=== PATIENT | male | born 1950 | race Caucasian/White ===

== ENCOUNTER 2016-07-31 18:51 | Emergency (ER) | payer OTHER ==
[~2016-07-31] VITALS: Ht 182.9 cm; Wt 107.5 kg
[2016-07-31 18:58] VITALS: Ht 182.9 cm; Wt 107.5 kg
[2016-07-31] MEDS ORDERED: GLC/500 PO (20:00)
[2016-07-31] MEDS ORDERED: INSDGIPEN SC (20:00)
[2016-07-31] MEDS ORDERED: LISI-461 PO (20:00)
[2016-07-31] MEDS ORDERED: BYTI10 SC (20:00)
[2016-07-31] MEDS ORDERED: OPTIRAY 320 IV PRN (20:00)
[2016-07-31 20:09] LABS: BASO % 0.4 %; BASO ABS # 0.03 K/uL (0-0.2); COMPLETE YES; EOS % 1.9 %; HEMATOCRIT 41.3 % (42-52); LYMPH ABS # 1.97 K/uL (1.2-3.4); MEAN CELL VOLUME 88.2 fL (80-100); MEAN CORPUSCULAR HEMOGLOBIN 30.3 pg (25-34); MEAN CORPUSCULAR HGB CONC 34.4 g/dl (32-36); MEAN PLATELET VOLUME 9.8 fL (7.4-10.4); MONO % 10.3 %; NEUT % 60.4 %; PLATELET COUNT 178 K/uL (130-400); RED BLOOD COUNT 4.68 M/uL (4.7-6.1); WHITE BLOOD COUNT 7.29 K/uL (4.8-10.8)
[2016-07-31 20:12] LABS: URINE APPEARANCE CLEAR (CLEAR); URINE BILIRUBIN NEG (NEG); URINE COLOR YELLOW; URINE NITRITE NEG (NEG); URINE SPECIFIC GRAVITY 1.022 (1.000-1.030); UROBILINOGEN NEG (NEG); ZZUR CULT IF INDIC CLEAN CATCH NO
[2016-07-31 20:30] LABS: BUN/CREATININE RATIO 14.2 (10-20); CALCIUM 8.5 mg/dl (8.5-10.1); POTASSIUM 3.9 mmol/L (3.5-5.1)
[2016-07-31 20:30] LABS: MANUAL MICROSCOPIC REQUIRED? NO; REVIEW REQ? NO
--- NOTE | 2016-07-31 21:24 | DIAGNOSTIC IMAGING REPORT ---
CT OF THE ABDOMEN AND PELVIS WITH CONTRAST CLINICAL HISTORY: Right upper quadrant abdominal pain. COMPARISON STUDY: None. TECHNIQUE: Following IV administration of 115 mL of [id number], axial images of the abdomen and pelvis were obtained from the lung bases to the proximal femurs. Images were reviewed in the axial, sagittal, and coronal planes. IV contrast was administered without complication. CT DOSE: 979.01 mGy.cm FINDINGS: No pneumatosis, free air or portal venous gas is present. The liver, spleen, adrenal glands, pancreas are normal. There is no peripancreatic or pericholecystic infiltration. There is no biliary or pancreatic ductal dilatation. Numerous water attenuation bilateral renal lesions reflect cysts. Several subcentimeter renal lesions are too small to characterize. There are small bilateral renal calculi which measure up to 3 mm. There are no ureteral calculi. There is no hydronephrosis. Caliber and wall thickness of small and large bowel are normal. There is colonic diverticulosis without evidence for acute or colitis. Small fat-containing umbilical hernia is noted. No suspicious skeletal lesions are identified. IMPRESSION: 1. No acute process within the abdomen or pelvis. 2. Punctate bilateral renal calculi. No ureteral calculi or hydronephrosis. 3. Numerous bilateral renal cysts in addition to multiple subcentimeter renal lesions which are too small to characterize. 4. Colonic diverticulosis without evidence of acute diverticulitis. Normal appendix. Electronically signed by: Devan Lawrence M.D. 07/31/2016 9:23 PM Dictated Date/Time: 07/31/2016 9:14 PM
--- NOTE | 2016-07-31 21:49 | EMERGENCY ROOM VISIT NOTE ---
ED Visit Note First contact with patient: 19:17 Patient was seen by our PA/ASSEMBLER ADJUSTER. I was involved in the patient's care and did evaluate the patient myself. I was involved in the care throughout the ER stay. The patient presents with concerns for renal colic. Laboratory testing, urine testing and CT imaging is unrevealing. The patient was reassured. He is in no distress, he is not febrile. He is being discharged with outpatient follow-up.
--- NOTE | 2016-07-31 22:07 | EMERGENCY ROOM VISIT NOTE ---
History First contact with patient: 19:17 Chief Complaint: KIDNEY STONE Stated Complaint: KIDNEY STONES History of Present Illness The patient is a 66 year old male who presents to the Emergency Room with complaints of right-sided abdominal pain. The patient reports he has had a burning pain in his right abdomen with radiation into the back. The pain has been intermittent for the past 3 weeks but has been more consistent over the past 1 week. He states he feels like he has a decreased urinary flow. He has a history of kidney stones but is unsure if this feels similar. He states he believes it is not as severe as previous kidney stones have been. He denies any associated dictations in bowel movements, nausea, vomiting or fevers. He denies any chest pain or shortness of breath. He rates the overall discomfort 8 /10. Review of Systems A complete 10 point review of systems was reviewed with the patient with pertinent positives and negatives as per history of present illness. All else were negative. Past Medical/Surgical History Medical Problems: (1) Diabetes (2) Kidney stones Family History Cancer Depression Seizures Social History Smoking Status: Never Smoker Alcohol Use: none Drug Use: none Marital Status: Housing Status: lives with family Occupation Status: employed Current/Historical Medications Scheduled Exenatide (Byetta), 10 MCG SC BID Insulin Glargine (Lantus Solostar), 30 UNITS SC QPM Lisinopril (Zestril), 10 MG PO DAILY Metformin Hcl (Glucophage), 500 MG PO BID Allergies Coded Allergies: No Known Allergies (Unverified , 07/31/16) Physical Exam Vital Signs Date Time Temp Pulse Resp B/P (MAP) Pulse Ox O2 Delivery O2 Flow Rate FiO2 07/31/16 22:16 36.9 60 18 134/86 98 07/31/16 21:58 65 18 134/86 98 Room Air 07/31/16 20:57 60 18 128/83 97 Room Air 07/31/16 18:58 36.9 74 18 147/93 97 Room Air Physical Exam VITALS: Vitals are noted on the nurse's note and reviewed by myself. Vital signs stable. GENERAL: This is a 66-year-old male, in no acute distress, nondiaphoretic, well- developed well-nourished. SKIN: Capillary reflex less than 2 seconds. HEENT: Normocephalic. PERRLA. EOMI. Nares patent. Mucous membranes moist. Neck is supple without nuchal rigidity. HEART: Regular rate and rhythm without murmurs gallops or rubs. LUNGS: Clear to auscultation bilaterally without wheezes, rales or rhonchi. No retractions or accessory muscle use. ABDOMEN: Positive bowel sounds x 4. Soft, minimal tenderness to palpation of the right upper quadrant. MUSCULOSKELETAL: No CVA tenderness. NEURO: Patient was alert and oriented to person place and time. Medical Decision & Procedures ER Provider Diagnostic Interpretation: CT OF THE ABDOMEN AND PELVIS WITH CONTRAST FINDINGS: No pneumatosis, free air or portal venous gas is present. The liver, spleen, adrenal glands, pancreas are normal. There is no peripancreatic or pericholecystic infiltration. There is no biliary or pancreatic ductal dilatation. Numerous water attenuation bilateral renal lesions reflect cysts. Several subcentimeter renal lesions are too small to characterize. There are small bilateral renal calculi which measure up to 3 mm. There are no ureteral calculi. There is no hydronephrosis. Caliber and wall thickness of small and large bowel are normal. There is colonic diverticulosis without evidence for acute or colitis. Small fat-containing umbilical hernia is noted. No suspicious skeletal lesions are identified. IMPRESSION: 1. No acute process within the abdomen or pelvis. 2. Punctate bilateral renal calculi. No ureteral calculi or hydronephrosis. 3. Numerous bilateral renal cysts in addition to multiple subcentimeter renal lesions which are too small to characterize. 4. Colonic diverticulosis without evidence of acute diverticulitis. Normal appendix. Laboratory Results 07/31/16 19:55 Red Blood Count 4.68, Mean Corpuscular Volume 88.2, Mean Corpuscular Hemoglobin 30.3, Mean Corpuscular Hemoglobin Concent 34.4, Mean Platelet Volume 9.8, Neutrophils (%) (Auto) 60.4, Lymphocytes (%) (Auto) 27.0, Monocytes (%) (Auto) 10.3, Eosinophils (%) (Auto) 1.9, Basophils (%) (Auto) 0.4, Neutrophils # (Auto ) 4.40, Lymphocytes # (Auto) 1.97, Monocytes # (Auto) 0.75, Eosinophils # (Auto ) 0.14, Basophils # (Auto) 0.03 07/31/16 19:55 Test 07/31/16 19:15 07/31/16 19:55 Urine Color YELLOW Urine Appearance CLEAR (CLEAR) Urine pH 5.0 (4.5-7.5) Urine Specific [place] 1.022 (1.000-1.030) Urine Protein NEG (NEG) Urine Glucose (UA) TRACE (NEG) Urine Ketones NEG (NEG) Urine Occult Blood NEG (NEG) Urine Nitrite NEG (NEG) Urine Bilirubin NEG (NEG) Urine Urobilinogen NEG (NEG) Urine Leukocyte Esterase NEG (NEG) White Blood Count 7.29 K/uL (4.8-10.8) Red Blood Count 4.68 M/uL (4.7-6.1) Hemoglobin 14.2 g/dL (14.0-18.0) Hematocrit 41.3 % (42-52) Mean Corpuscular Volume 88.2 fL (80-100) Mean Corpuscular Hemoglobin 30.3 pg (25-34) Mean Corpuscular Hemoglobin Concent 34.4 g/dl (32-36) Platelet Count 178 K/uL (130-400) Mean Platelet Volume 9.8 fL (7.4-10.4) Neutrophils (%) (Auto) 60.4 % Lymphocytes (%) (Auto) 27.0 % Monocytes (%) (Auto) 10.3 % Eosinophils (%) (Auto) 1.9 % Basophils (%) (Auto) 0.4 % Neutrophils # (Auto) 4.40 K/uL (1.4-6.5) Lymphocytes # (Auto) 1.97 K/uL (1.2-3.4) Monocytes # (Auto) 0.75 K/uL (0.11-0.59) Eosinophils # (Auto) 0.14 K/uL (0-0.5) Basophils # (Auto) 0.03 K/uL (0-0.2) RDW Standard Deviation 42.5 fL (36.4-46.3) RDW Coefficient of Variation 13.3 % (11.5-14.5) Immature Granulocyte % (Auto) 0.0 % Immature Granulocyte # (Auto) 0.00 K/uL (0.00-0.02) Anion Gap 7.0 mmol/L (3-11) Est Creatinine Clear Calc Drug Dose 89.6 ml/min Estimated GFR () 89.2 Estimated GFR (Non- 77.0 BUN/Creatinine Ratio 14.2 (10-20) Calcium Level 8.5 mg/dl (8.5-10.1) Total Bilirubin 0.4 mg/dl (0.2-1) Aspartate Amino Transf (AST/SGOT) 17 U/L (15-37) Alanine Aminotransferase (ALT/SGPT) 24 U/L (12-78) Alkaline Phosphatase 66 U/L (45-117) Total Protein 7.1 gm/dl (6.4-8.2) Albumin 3.6 gm/dl (3.4-5.0) Globulin 3.5 gm/dl (2.5-4.0) Albumin/Globulin Ratio 1.0 (0.9-2) Lipase 185 U/L (73-393) ED Course The patient was evaluated as above. Labs were drawn and IV access was obtained. Patient declined analgesics. CT of the abdomen and pelvis was performed and read by radiology as above. Patient was reevaluated and findings were discussed. He is ready for discharge. Discharge instructions were reviewed with the patient. The patient verbalized understanding of my assessment and treatment plan and was discharged home in good condition. Medical Decision Differential diagnosis includes kidney stone, pyelonephritis, colitis, gastroenteritis, biliary colic, bowel obstruction, malignancy, hepatitis, pancreatitis, among others. The patient is a 66-year-old male who presents today complaining of vague right- sided abdominal pain. Labs revealed no leukocytosis, anemia or concerning electrolyte abnormalities. Glucose was mildly elevated consistent with patient' s history of diabetes. Urinalysis was not suggestive of infection. CT scan of the abdomen and pelvis with IV contrast was performed and read by radiology with no acute findings within the abdomen. The patient's pain may be secondary to gastritis. I do not feel that further workup is necessary at this time. He was instructed to follow-up closely with his primary care provider for further evaluation and treatment of his abdominal pain. He was instructed to return here if he has worsening pain, vomiting, fevers or any other/concerning symptoms. The patient's case was reviewed with Dr. Sandoval, ED attending physician, who agreed with my assessment and treatment plan. Based on the patient's presentation and work up, I feel the patient is stable for outpatient treatment. The patient was educated to return to the emergency department for any worsening of their current condition or new/concerning symptoms. He will follow up with his PCP. Medication reconciliation: I attest that I have personally reviewed the patient 's current medication list. Blood pressure screening: Patient was found to have normal blood pressure on screening and does not require follow-up. Impression Primary Impression: Right sided abdominal pain Departure Information Dispostion Home / Self-Care Condition GOOD Referrals No Doctor, Assigned (PCP) Patient Instructions My [facility] Additional Instructions You have been treated in the Emergency Department your Abdominal Pain. Laboratory results and imaging studies have ruled out any emergent causes for your abdominal pain which would warrant admission or surgery. For pain control, you can use the following [id number] medicines (if >12 yo): - Regular strength (325mg/tab) Tylenol (acetaminophen) 2 tabs every 4-6 hours as needed. Do not exceed 12 tablets in a 24 hour period. Avoid taking more than 4 grams (4000 mg) of Tylenol per day. This includes any other sources of acetaminophen you may take on a regular basis. - Regular strength (200 mg/tab) Advil (ibuprofen) 1-2 tabs every 4-6 hours as needed. Do not exceed a dose of 3200 mg per day. Drink plenty of water and stay well hydrated. As with any trip to the Emergency Department, you should follow-up with your Primary Care Provider from today's visit. Return to the emergency department if your symptoms persist despite treatment plan outlined above or if the following symptoms occur: increased fevers, chills , worsening nausea/vomiting, blood in your stool or urine.
[2016-07-31 22:16] VITALS: BP 134/86; PULSE 60; TEMP 36.9; O2SAT 98
== END 2016-07-31 22:15 | disposition home or self-care (01) ==
LOC: C.EDB 18:55 → C.EDA 22:15
DX: R10.9 Unspecified abdominal pain (principal); E11.9 Type 2 diabetes mellitus without complications; Z87.442 Personal history of urinary calculi; Z80.9 Family history of malignant neoplasm, unspecified; Z79.4 Long term (current) use of insulin; Z79.899 Other long term (current) drug therapy

== ENCOUNTER → 2016-09-16 | Outpatient (CLI) | payer OTHER ==
[~2016-09-16] MED LIST: BYTI10 SC; GLC/500 PO; INSDGIPEN SC; LISI-461 PO
--- NOTE | 2016-09-16 07:58 | DIAGNOSTIC IMAGING REPORT ---
ABDOMEN LIMITED (US) HISTORY: 66 years-old Male R10.11 acute right upper quadrant abdominal pain COMPARISON: CT abdomen and pelvis 07/31/2016 TECHNIQUE: Multiple real-time sonographic images of the abdominal right upper quadrant were obtained assessing grayscale appearance and color flow. FINDINGS: The imaged portions of the pancreatic parenchyma are within normal limits with tail obscured by bowel gas. The hepatic parenchyma demonstrates diffusely increased echogenicity with poor through transmission, compatible with fatty infiltration. Other measures up to 22 cm in length. There is a ill-defined area of decreased hepatic parenchymal echogenicity adjacent to the gallbladder, 2.3 x 0.8 x 1.6 cm without internal vascularity suggesting fatty sparing. No mass is identified on comparison CT dated 07/31/2016. The gallbladder appears normal without shadowing cholelithiasis, gallbladder wall thickening or pericholecystic fluid collections. Common bile duct is also normal, 0.4 cm. Previously noted nonobstructing 3 mm calculus of the inferior pole right kidney is again noted without hydronephrosis. IMPRESSION: 1. Fatty infiltration of the liver with ill-defined area of decreased hepatic parenchymal echogenicity adjacent to the gallbladder measuring up to 2.3 cm. No mass was seen on comparison CT dated 07/31/2016. This suggests focal fatty infiltration. 2. No cholelithiasis or evidence of acute cholecystitis. 3. 3 mm nonobstructing calculus of the inferior pole right kidney again noted. The above report was generated using voice recognition software. It may contain grammatical, syntax or spelling errors. Electronically signed by: Tyler Curran M.D. 09/16/2016 7:56 AM Dictated Date/Time: 09/16/2016 7:52 AM
== END | disposition home or self-care (01) ==
LOC: C.ULTR 07:31
PROVIDERS: ATTEND Internal Medicine Gastroenterology
DX: R10.11 Right upper quadrant pain (principal)

== ENCOUNTER → 2016-09-26 | Outpatient (CLI) | payer OTHER ==
[2016-09-26 18:03] LABS: BLOOD UREA NITROGEN 25 mg/dl (7-18)
== END | disposition home or self-care (01) ==
LOC: C.LAB1850 16:26
PROVIDERS: ATTEND Psychiatry & Neurology Neurology
DX: Z00.00 Encounter for general adult medical examination without abnormal findings (principal); E11.9 Type 2 diabetes mellitus without complications

== ENCOUNTER → 2016-10-02 | Outpatient (CLI) | payer OTHER ==
[~2016-10-02] MED LIST changes: +GADAVIST IV PRN
--- NOTE | 2016-10-02 13:03 | DIAGNOSTIC IMAGING REPORT ---
MRI OF THE THORACIC SPINE WITH AND WITHOUT CONTRAST CLINICAL HISTORY: Neuralgia of right abdominal wall (around T7-T10). COMPARISON STUDY: No previous studies for comparison. TECHNIQUE: Utilizing a 1.5 Page magnet, multiplanar, multiecho imaging of the thoracic spine was performed pre and postcontrast administration. Injection of 10.3 cc of Gadavist IV was uneventful. FINDINGS: Alignment of the thoracic spine is anatomic. Vertebral body heights are maintained. No fracture or marrow edema is present. There is no suspicious marrow replacement. Thoracic cord signal and caliber are normal. There is no intracanalicular mass or fluid collection. Paravertebral soft tissues are unremarkable. Mild multilevel degenerative disc disease is present with minimal disc bulges at a few tiny disc protrusion at several levels. The central canal and neural foramen are patent. IMPRESSION: 1. Normal thoracic cord signal and caliber. 2. Patent central canal and neural foramen. Mild multilevel degenerative disc disease with several mild disc bulges and tiny disc protrusions. Electronically signed by: Devan Lawrence M.D. 10/02/2016 1:02 PM Dictated Date/Time: 10/02/2016 8:38 AM
== END | disposition home or self-care (01) ==
LOC: C.MRI 07:23
PROVIDERS: ATTEND Psychiatry & Neurology Neurology
DX: M79.2 Neuralgia and neuritis, unspecified (principal)

== ENCOUNTER → 2016-10-10 | Outpatient (CLI) | payer OTHER ==
[~2016-10-10] MED LIST changes: -GADAVIST IV PRN
[2016-10-10 17:46] LABS: LYME DISEASE AB IGG NEG (NEG); LYME DISEASE AB IGM NEG (NEG)
[2016-10-10 23:34] LABS: RAPID PLASMA REAGIN NONREACTIVE (NONREACT)
[2016-10-15 10:34] LABS: ALBUMIN 4.2 G/DL (3.8-4.8); GAMMA GLOBULIN 0.9 G/DL (0.8-1.7); TOTAL PROTEIN 7.2 G/DL (6.2-8.3)
--- NOTE | 2016-10-17 11:12 | CODING QUERY MEDICAL NECESSITY ---
SUPPORTING DIAGNOSIS NEEDED Dr. Najera, A supporting diagnosis is required for the test/procedure performed on this patient in order for us to be reimbursed by the patient's insurance. Please provide a supporting diagnosis for the following test/procedure listed below next to the test name along with your signature. *If there is no additional diagnosis for this patient that would support the following test/procedure please document that below next to the test/procedure. Test(s)/Procedure(s) that require a supporting diagnosis: * ([id number]) B12 VITAMIN LEVEL DIAGNOSIS: DATE OF SERVICE: 10/10/16 Provider Signature: Date: Thank you [facility] Once completed, please kindly fax back to [phone] For questions please call [phone]
== END | disposition home or self-care (01) ==
LOC: C.LABBC 12:36
PROVIDERS: ATTEND Psychiatry & Neurology Neurology
DX: M79.2 Neuralgia and neuritis, unspecified (principal); M54.14 Radiculopathy, thoracic region; G62.9 Polyneuropathy, unspecified; Z79.899 Other long term (current) drug therapy; G60.9 Hereditary and idiopathic neuropathy, unspecified